=== PATIENT | male | born 1975 | race Caucasian/White ===

== ENCOUNTER → 2017-04-02 | Outpatient (REF) | payer OTHER ==
[~2017-04-02] MED LIST: ALPR2TAB3 PO; BUSP1TAB PO; CELE1CAP4 PO; CETI10TA PO; DEXI60CA2 PO; FLON0.054; PERCOCET PO; SERT25TA PO; SOMA350T PO; ZYRT10CA PO; ZYRT1TAB PO
[2017-04-02 10:58] LABS: IMMMOTILE SPERM CENTRIFUGED ABSENT (ABSENT); IMMOTILE SPERM ABSENT (ABSENT); MOTILE SPERM ABSENT (ABSENT); MOTILE SPERM CENTRIFUGED ABSENT (ABSENT)
== END ==
LOC: M SFHCLERA 10:37
PROVIDERS: ATTEND Physician Assistant
DX: Z98.52 Vasectomy status (principal)

== ENCOUNTER → 2017-10-16 | Outpatient (CLI) | payer OTHER | LOC: M LRY 13:46 | DX: M54.41 Lumbago with sciatica, right side (principal); M25.551 Pain in right hip | CPT/HCPCS: 72110 ==

== ENCOUNTER → 2017-11-18 | Outpatient (CLI) | payer OTHER | LOC: M RAD 17:36 | DX: M51.27 Other intervertebral disc displacement, lumbosacral region (principal); M51.36 Other intervertebral disc degeneration, lumbar region | CPT/HCPCS: 72148 ==

== ENCOUNTER → 2017-12-10 | Outpatient (CLI) | payer OTHER | LOC: M PAIN 10:45 | DX: M51.16 Intervertebral disc disorders with radiculopathy, lumbar region (principal); M51.17 Intervertebral disc disorders with radiculopathy, lumbosacral region; G89.29 Other chronic pain; E66.01 Morbid (severe) obesity due to excess calories; Z68.41 Body mass index [BMI] 40.0-44.9, adult; G47.30 Sleep apnea, unspecified; J30.89 Other allergic rhinitis; Z79.899 Other long term (current) drug therapy | CPT/HCPCS: G0463 ==

== ENCOUNTER → 2018-01-03 | Outpatient (CLI) | payer OTHER ==
[~2018-01-03] MED LIST changes: -ALPR2TAB3 PO; -BUSP1TAB PO; -CELE1CAP4 PO; -CETI10TA PO; -DEXI60CA2 PO; -FLON0.054; +ISOVUE-M 300 61% 15ML VIAL (Q9967) As Ordered; +LIDOCAINE 1% SDV INJ 30 ML VIAL As Ordered; -PERCOCET PO; -SERT25TA PO; -SOMA350T PO; -ZYRT10CA PO; -ZYRT1TAB PO; +diazePAM 5 MG TAB As Ordered; +methylPREDNISolone SUSP 40 MG/ML (DEPO-medrol) VIAL (J1030) As Ordered
== END ==
LOC: M PAIN 08:30
DX: G89.29 Other chronic pain (principal); M51.16 Intervertebral disc disorders with radiculopathy, lumbar region; E78.5 Hyperlipidemia, unspecified; G47.30 Sleep apnea, unspecified; J30.89 Other allergic rhinitis; E66.01 Morbid (severe) obesity due to excess calories; Z68.38 Body mass index [BMI] 38.0-38.9, adult; Z79.899 Other long term (current) drug therapy
CPT/HCPCS: J1030

== ENCOUNTER → 2018-02-17 | Outpatient (CLI) | payer OTHER | LOC: M PAIN 14:15 | DX: M51.16 Intervertebral disc disorders with radiculopathy, lumbar region (principal); M51.17 Intervertebral disc disorders with radiculopathy, lumbosacral region; G47.30 Sleep apnea, unspecified; J30.89 Other allergic rhinitis; E66.01 Morbid (severe) obesity due to excess calories; Z79.899 Other long term (current) drug therapy; Z68.37 Body mass index [BMI] 37.0-37.9, adult | CPT/HCPCS: G0463 ==

== ENCOUNTER → 2018-06-27 | Outpatient (REF) | payer OTHER | LOC: M SFHCLERA 16:21 | DX: E66.9 Obesity, unspecified (principal) ==

== ENCOUNTER → 2019-10-16 | Outpatient (REF) | payer OTHER ==
[~2019-10-16] MED LIST changes: +ALPR2TAB3 PO; +BUSP1TAB PO; +CELE1CAP4 PO; +CETI10TA PO; +DEXI60CA2 PO; +FLON0.054; -ISOVUE-M 300 61% 15ML VIAL (Q9967) As Ordered; -LIDOCAINE 1% SDV INJ 30 ML VIAL As Ordered; +PERCOCET PO; +SERT25TA85 PO; +SOMA350T PO; +ZYRT10CA PO; +ZYRT1TAB PO; -diazePAM 5 MG TAB As Ordered; -methylPREDNISolone SUSP 40 MG/ML (DEPO-medrol) VIAL (J1030) As Ordered
[2019-10-16 14:36] LABS: ALBUMIN 4.2 GM/DL (3.2-5.2); ALT/SGPT 57 U/L (12-78); BILIRUBIN,TOTAL 0.8 MG/DL (0.2-1.0); BLOOD UREA NITROGEN 13 MG/DL (7-18); CALCIUM LEVEL 9.3 MG/DL (8.5-10.1); CARBON DIOXIDE LEVEL 31 MEQ/L (21-32); CHLORIDE LEVEL 99 MEQ/L (98-107); CHOLESTEROL LEVEL 214 MG/DL (<200); CHOLESTEROL RISK RATIO 8.916 (<5); CREATININE FOR GFR 0.88 MG/DL (0.70-1.30); GLOMERULAR FILTRATION RATE > 60.0 (>60); GLUCOSE, FASTING 342 MG/DL (70-100); HDL CHOLESTEROL 24 MG/DL (>40); NON-HDL-C 190 MG/DL; POTASSIUM SERUM 4.7 MEQ/L (3.5-5.1); SODIUM LEVEL 135 MEQ/L (136-145); TOTAL PROTEIN 7.5 GM/DL (6.4-8.2); TRIGLYCERIDES LEVEL 538 MG/DL (<150)
== END ==
LOC: M SFHCLERA 10:27
PROVIDERS: ATTEND Family Medicine
DX: E66.9 Obesity, unspecified (principal)

== ENCOUNTER → 2019-11-14 | Outpatient (REF) | payer OTHER ==
[2019-11-14 12:28] LABS: HEMOGLOBIN A1c 10.3 %
[2019-11-14 12:42] LABS: FREE T4 0.94 NG/DL (0.76-1.46); THYROID STIMULATING HORMONE 1.28 uIU/ML (0.358-3.740)
[2019-11-14 12:46] LABS: CREATININE, URINE 87.1 MG/DL; MALB URINE SIEMENS < 5.0 MG/L; MAU/CREAT RATIO 5.7 MCG/MG (0.0-30.0)
[2019-11-17 00:07] LABS: C-PEPTIDE 3.8 ng/mL (1.1-4.4); ISLET CELL ANTIBODIES Negative (Neg:<1:1)
== END ==
LOC: M SFHCLERA 08:07
PROVIDERS: ATTEND Family Medicine
DX: E11.9 Type 2 diabetes mellitus without complications (principal)

== ENCOUNTER → 2021-06-06 | Outpatient (CLI) | payer OTHER ==
[2021-06-06 15:59] LABS: BLOOD UREA NITROGEN 24 MG/DL (7-18); CALCIUM LEVEL 9.3 MG/DL (8.5-10.1); CARBON DIOXIDE LEVEL 32 MEQ/L (21-32); CHLORIDE LEVEL 105 MEQ/L (98-107); CREATININE FOR GFR 0.88 MG/DL (0.70-1.30); GLOMERULAR FILTRATION RATE > 60.0 (>60); GLUCOSE, FASTING 126 MG/DL (70-100); POTASSIUM SERUM 4.2 MEQ/L (3.5-5.1); SODIUM LEVEL 140 MEQ/L (136-145)
[2021-06-06 16:11] LABS: HEMOGLOBIN A1c 9.2 %
== END ==
LOC: M PLALAB 12:16
PROVIDERS: ATTEND Family Medicine
DX: E11.65 Type 2 diabetes mellitus with hyperglycemia (principal)

== ENCOUNTER → 2021-09-24 | Outpatient (REF) | payer OTHER | LOC: M SFHCPLAZ 13:03 | PROVIDERS: ATTEND Physician Assistant | DX: R09.81 Nasal congestion (principal) ==

== ENCOUNTER → 2022-06-02 | Outpatient (CLI) | payer OTHER ==
[2022-06-02 18:14] LABS: BLOOD UREA NITROGEN 15 MG/DL (7-18); CALCIUM LEVEL 9.1 MG/DL (8.5-10.1); CARBON DIOXIDE LEVEL 27 MEQ/L (21-32); CHLORIDE LEVEL 103 MEQ/L (98-107); CREATININE FOR GFR 0.76 MG/DL (0.70-1.30); GLOMERULAR FILTRATION RATE > 60.0 (>60); GLUCOSE, FASTING 113 MG/DL (70-100); POTASSIUM SERUM 4.1 MEQ/L (3.5-5.1); SODIUM LEVEL 137 MEQ/L (136-145)
== END ==
LOC: M PLALAB 15:40
PROVIDERS: ATTEND Family Medicine
DX: E11.65 Type 2 diabetes mellitus with hyperglycemia (principal)

== ENCOUNTER → 2022-08-16 | Outpatient (CLI) | payer OTHER ==
[~2022-08-16] MED LIST changes: +ATOR1TAB21 PO; +JARD1TAB3 PO; +METF10004 PO
== END ==
LOC: M LABSMTC 09:21
PROVIDERS: ATTEND Anesthesiology
DX: Z20.828 Contact with and (suspected) exposure to other viral communicable diseases (principal); Z11.59 Encounter for screening for other viral diseases

== ENCOUNTER 2022-08-20 07:03 | Day surgery (SDC) | payer OTHER ==
[~2022-08-20] VITALS: Ht 180.3 cm; Wt 122.0 kg
[~2022-08-20 07:03] MED LIST changes: +NS 1,000 ML IV ONE
[2022-08-20] MEDS ORDERED: LIDOCAINE 2% 100MG/5ML SDV (FOR ANES.) As Ordered ONE (07:29)
[2022-08-20] MEDS ORDERED: propofoL 200 MG/20 ML VIAL As Ordered ONE ×2 (07:29→07:43)
[2022-08-20] MEDS ORDERED: MIDAZOLAM INJ 2MG/2ML VIAL (J2250 PER 1MG) As Ordered ONE (07:29)
[2022-08-20 08:10] VITALS: BP 118/73
== END 2022-08-20 08:17 | disposition home or self-care (01) ==
LOC: M OPP 07:03
PROVIDERS: ATTEND Surgery
DX: Z12.11 Encounter for screening for malignant neoplasm of colon (principal); Z80.0 Family history of malignant neoplasm of digestive organs; D12.6 Benign neoplasm of colon, unspecified; E11.9 Type 2 diabetes mellitus without complications; G47.30 Sleep apnea, unspecified; F32.9 Major depressive disorder, single episode, unspecified; F41.9 Anxiety disorder, unspecified; J30.89 Other allergic rhinitis; Z79.02 Long term (current) use of antithrombotics/antiplatelets; Z79.84 Long term (current) use of oral hypoglycemic drugs; Z79.899 Other long term (current) drug therapy; Z80.1 Family history of malignant neoplasm of trachea, bronchus and lung
CPT/HCPCS: 45385; 88305; J2250

== ENCOUNTER → 2023-05-20 | Outpatient (CLI) | payer OTHER ==
[~2023-05-20] MED LIST changes: -NS 1,000 ML IV ONE
[2023-05-20 17:29] LABS: HEMOGLOBIN A1c 11.9 % (4.0-6.0)
[2023-05-20 17:47] LABS: CREATININE, URINE 50.3 MG/DL
[2023-05-20 17:48] LABS: ALBUMIN 3.7 G/DL (3.2-5.2); ALKALINE PHOSPHATASE 74 U/L (46-116); ALT/SGPT 85 U/L (7.0-40); AST/SGOT 19 U/L (<34); BILIRUBIN,TOTAL 0.7 MG/DL (0.3-1.2); BLOOD UREA NITROGEN 19 MG/DL (9-23); CARBON DIOXIDE LEVEL 27 MMOL/L (20-31); CHLORIDE LEVEL 101 MMOL/L (98-107); CHOLESTEROL LEVEL 121 MG/DL (<200); CHOLESTEROL RISK RATIO 4.44 (<5); CREATININE FOR GFR 0.73 MG/DL (0.70-1.30); GLOMERULAR FILTRATION RATE > 60.0 (>60); GLUCOSE, FASTING 305 MG/DL (60-100); HDL CHOLESTEROL 27.2 MG/DL (>40); LDL CHOLESTEROL 64.6 MG/DL (<100); NON-HDL-C 93.8 MG/DL; POTASSIUM SERUM 4.3 MMOL/L (3.5-5.1); SODIUM LEVEL 137 MMOL/L (136-145); TOTAL PROTEIN 6.3 G/DL (5.7-8.2); TRIGLYCERIDES LEVEL 146 MG/DL (<150)
[2023-05-20 17:49] LABS: MALB URINE SIEMENS < 3.0 MG/L; MAU/CREAT RATIO 5.9 MCG/MG (0.0-30.0)
== END ==
LOC: M PLALAB 15:03
PROVIDERS: ATTEND Family Medicine
DX: E11.9 Type 2 diabetes mellitus without complications (principal); E78.5 Hyperlipidemia, unspecified

== ENCOUNTER → 2023-05-27 | Outpatient (CLI) | payer OTHER ==
[2023-05-27 19:01] LABS: BLOOD UREA NITROGEN 18 MG/DL (9-23); CARBON DIOXIDE LEVEL 28 MMOL/L (20-31); CHLORIDE LEVEL 103 MMOL/L (98-107); CREATININE FOR GFR 0.74 MG/DL (0.70-1.30); GLOMERULAR FILTRATION RATE > 60.0 (>60); GLUCOSE, FASTING 262 MG/DL (60-100); POTASSIUM SERUM 4.4 MMOL/L (3.5-5.1); SODIUM LEVEL 138 MMOL/L (136-145)
== END ==
LOC: M PLALAB 15:02
PROVIDERS: ATTEND Family Medicine
DX: E11.65 Type 2 diabetes mellitus with hyperglycemia (principal)

== ENCOUNTER → 2023-07-27 | Outpatient (CLI) | payer OTHER ==
[2023-07-27 18:15] LABS: CREATININE, URINE 134.8 MG/DL; MAU/CREAT RATIO 2.9 MCG/MG (0.0-30.0)
[2023-07-27 18:25] LABS: ALKALINE PHOSPHATASE 60 U/L (46-116); ALT/SGPT 68 U/L (7.0-40); AST/SGOT 22 U/L (<34); BLOOD UREA NITROGEN 18 MG/DL (9-23); CARBON DIOXIDE LEVEL 30 MMOL/L (20-31); CHLORIDE LEVEL 104 MMOL/L (98-107); CHOLESTEROL LEVEL 132 MG/DL (<200); CHOLESTEROL RISK RATIO 4.41 (<5); CREATININE FOR GFR 0.93 MG/DL (0.70-1.30); GLOMERULAR FILTRATION RATE > 60.0 (>60); GLUCOSE, FASTING 96 MG/DL (60-100); HDL CHOLESTEROL 29.9 MG/DL (>40); LDL CHOLESTEROL 78.1 MG/DL (<100); NON-HDL-C 102.1 MG/DL; POTASSIUM SERUM 4.4 MMOL/L (3.5-5.1); SODIUM LEVEL 140 MMOL/L (136-145); TOTAL PROTEIN 6.6 G/DL (5.7-8.2); TRIGLYCERIDES LEVEL 120 MG/DL (<150)
== END ==
LOC: M PLALAB 15:22
PROVIDERS: ATTEND Family Medicine
DX: E11.9 Type 2 diabetes mellitus without complications (principal); E78.5 Hyperlipidemia, unspecified

== ENCOUNTER → 2023-12-01 | Outpatient (CLI) | payer OTHER ==
[2023-12-01 12:03] LABS: HEMOGLOBIN A1c 6.2 % (4.0-6.0)
[2023-12-01 12:17] LABS: ALKALINE PHOSPHATASE 58 U/L (46-116); ALT/SGPT 86 U/L (7.0-40); AST/SGOT 23 U/L (<34); BILIRUBIN,TOTAL 0.9 MG/DL (0.3-1.2); BLOOD UREA NITROGEN 24 MG/DL (9-23); CALCIUM LEVEL 8.7 MG/DL (8.5-10.1); CARBON DIOXIDE LEVEL 29 MMOL/L (20-31); CHLORIDE LEVEL 104 MMOL/L (98-107); CREATININE FOR GFR 0.94 MG/DL (0.70-1.30); GLOMERULAR FILTRATION RATE > 60.0 (>60); GLUCOSE, FASTING 89 MG/DL (60-100); POTASSIUM SERUM 5.1 MMOL/L (3.5-5.1); SODIUM LEVEL 139 MMOL/L (136-145); TOTAL PROTEIN 6.5 G/DL (5.7-8.2)
== END ==
LOC: M PLALAB 07:52
PROVIDERS: ATTEND Family Medicine
DX: E11.9 Type 2 diabetes mellitus without complications (principal)

== ENCOUNTER → 2025-04-13 | Outpatient (CLI) | payer OTHER ==
[2025-04-13 10:49] LABS: ALT/SGPT 69 U/L (7.0-40); AST/SGOT 22 U/L (<34); CALCIUM LEVEL 8.8 MG/DL (8.5-10.1); CARBON DIOXIDE LEVEL 29 MMOL/L (20-31); CHLORIDE LEVEL 104 MMOL/L (98-107); CHOLESTEROL LEVEL 100 MG/DL (<200); CHOLESTEROL RISK RATIO 3.41 (<5); CREATININE FOR GFR 0.85 MG/DL (0.70-1.30); GLOMERULAR FILTRATION RATE > 90.0 (>60); LDL CHOLESTEROL 59.9 MG/DL (<100); NON-HDL-C 70.7 MG/DL; POTASSIUM SERUM 4.7 MMOL/L (3.5-5.1); SODIUM LEVEL 141 MMOL/L (136-145); TRIGLYCERIDES LEVEL 54 MG/DL (<150)
[2025-04-13 10:58] LABS: BASO # 0.0 10^3/uL (0.0-0.2); BASO % 0.6 % (0.0-1.0); EOS # 0.2 10^3/uL (0.0-0.5); EOS % 2.8 % (0.0-3.0); LYMPH # 1.7 10^3/uL (1.5-5.0); LYMPH % 23.5 % (24.0-44.0); MONO # 0.6 10^3/uL (0.0-0.8); MONO % 8.0 % (2.0-8.0); NEUTROPHILS # 4.7 10^3/uL (1.5-8.5); NEUTROPHILS % 64.5 % (36.0-66.0); PLATELET COUNT, AUTOMATED 211 10^3/uL (150-450)
[2025-04-13 10:59] LABS: ESTIMATED AVERAGE GLUCOSE 123.0 MG/DL (60-110)
[2025-04-13 11:07] LABS: CREATININE, URINE 89.1 MG/DL; MALB URINE SIEMENS < 3.0 MG/L
== END ==
LOC: M PLALAB 08:23
PROVIDERS: ATTEND Family Medicine
DX: Z00.00 Encounter for general adult medical examination without abnormal findings (principal); E11.9 Type 2 diabetes mellitus without complications; E78.5 Hyperlipidemia, unspecified